=== PATIENT | female | born 1990 | race Caucasian/White ===

== ENCOUNTER 2024-06-10 15:40 | Outpatient (CLI) | payer BC, SELFPAY ==
[2024-06-10 13:53] LABS: HCG Quant, Pregnancy 1316 mIU/mL (1-3)
== END 2024-06-10 15:41 | disposition home or self-care (01) ==
LOC: LBO 15:42
PROVIDERS: Visit Provider Obstetrics & Gynecology
DX: O26.859 Spotting complicating pregnancy, unspecified trimester (principal)
CPT/HCPCS: 36415; 84702

== ENCOUNTER 2024-06-12 04:01 | Outpatient (CLI) | payer BC, SELFPAY ==
[2024-06-12 11:07] LABS: HCG Quant, Pregnancy 843 mIU/mL (1-3)
--- NOTE | 2024-06-12 11:45 | DI.US_ITS ---
Exam(s) US OB 1ST TRIMESTER EXAM: US OB 1ST TRIMESTER CLINICAL HISTORY: pain, , sab vs ectopic, hemorrhage in early , O20.9. COMPARISON: US POCUS EXAM from 06/10/2024 TECHNIQUE: Transabdominal Transvaginal first trimester obstetrical ultrasound performed. FINDINGS: Pelvic Measurments Uterus: 9.1 x 4.3 x 6.2 cm Rt Ovary: 3.9 x 3.2 x 2.7 cm Lt Ovary: 2.5 x 1.2 x 2.0 cm There is an irregularly shaped intrauterine gestational sac and fluid in the endometrial canal. Ther e is a question of a yolk sac however added appears deformed. There may be a pole however ther e is no visible cardiac activity. Findings are consistent with a nonviable gestation. IMPRESSION: Nonviable gestation. No evidence of ectopic . DATA REPOSITORY:
== END 2024-06-12 04:02 | disposition home or self-care (01) ==
PROVIDERS: Visit Provider Obstetrics & Gynecology
DX: O20.9 Hemorrhage in early pregnancy, unspecified (principal)
CPT/HCPCS: 36415; 76801; 84702

== ENCOUNTER 2024-06-17 14:46 | Outpatient (CLI) | payer BC, SELFPAY ==
[2024-06-17 14:42] LABS: HCG Quant, Pregnancy 87 mIU/mL (1-3)
== END 2024-06-17 14:47 | disposition home or self-care (01) ==
LOC: LBO 14:47
PROVIDERS: PCP Obstetrics & Gynecology; Visit Provider Obstetrics & Gynecology
DX: O03.9 Complete or unspecified spontaneous abortion without complication (principal)
CPT/HCPCS: 36415; 84702

== ENCOUNTER 2024-06-25 13:32 | Outpatient (CLI) | payer BC, SELFPAY ==
[2024-06-25 13:52] LABS: HCG Quant, Pregnancy 5 mIU/mL (1-3)
== END 2024-06-25 13:33 | disposition home or self-care (01) ==
LOC: LBO 13:32
PROVIDERS: PCP Obstetrics & Gynecology; Visit Provider Obstetrics & Gynecology
DX: O03.9 Complete or unspecified spontaneous abortion without complication (principal)
CPT/HCPCS: 36415; 84702

== ENCOUNTER 2024-06-27 11:22 | Outpatient (CLI) | payer BC, SELFPAY ==
[2024-06-27 17:25] LABS: TSH (W/Ref FT4) 3.12 uIU/mL (0.36-3.74)
[2024-07-01 16:57] LABS: Phospholipid Ab, IgG <9.4 GPL; Phospholipid Ab, IgM <9.4 MPL
[2024-07-11 17:39] LABS: Result 46,XX; Result Summary Normal; Specimen Blood
== END 2024-06-27 11:23 | disposition home or self-care (01) ==
LOC: LBO 11:22
PROVIDERS: PCP Obstetrics & Gynecology; Visit Provider Obstetrics & Gynecology
DX: E28.2 Polycystic ovarian syndrome (principal); O26.20 Pregnancy care for patient with recurrent pregnancy loss, unspecified trimester
CPT/HCPCS: 36415; 86147; 88230; 88291; 84443; 88262

== ENCOUNTER 2024-09-18 09:05 | Outpatient (CLI) | payer BC, SELFPAY | END 2024-09-18 09:06 | disposition home or self-care (01) | LOC: LBO 09:06 | PROVIDERS: PCP Obstetrics & Gynecology; Visit Provider Psychiatry & Neurology Neurology | DX: G40.909 Epilepsy, unspecified, not intractable, without status epilepticus (principal) | CPT/HCPCS: 36415; 80177 ==